=== PATIENT | female | born 1995 | race Caucasian/White ===

== ENCOUNTER 2018-11-11 17:08 | Emergency (ER) | payer MEDICAID, SELFPAY ==
[2018-11-11 17:15] VITALS: BP 130/70; PULSE 78; RESP 14; TEMP 37; O2SAT 99
--- NOTE | 2018-11-11 17:15 | W.ED.GENAD ---
Discharge Plan Disposition Patient Disposition: HOME Condition: Stable Discharge Details Chief Complaint: Abd Prob Clinical Impression: Abdominal pain, UTI (urinary tract infection) Primary Care Provider: None,None ED Provider: Jack Haynes Home Meds and New Rx's Prescriptions: New ciprofloxacin HCl 500 mg tablet 500 mg PO BID Qty: 14 RF: 0 No Action buprenorphine-naloxone [Suboxone] 8-2 mg Film 1 film BUCCAL BID RF: 0 Discharge Instructions Instructions: Urinary Tract Infection in Women (ED) Additional Instructions: you can take 1000mg tylenol and 600mg ibuprofen every 6 hours for pain as needed if symptoms continue in a week see your primary care provider return to the emergency department if you have severe worsening of pain or persistent vomit Medical Decision Making 23 yo female on suboxone for prior substance abuse, no prior surgeries or significant other medical hx, comes in with cc of abdominal pain that started this morning. Denies vomit but has had intermittent nausea. States thepain started around the bellybutton and since has moved to the right mid abdomen. On exam she is in no distress, has tenderness in the rlq and right oblique without guarding or rebound. Will obtain lab work and imaging to eval for entities such as appendicitis vs pancreatitis among other pathology blood work and cat scan do not show any acute findings. Her UA does show evidence of uti, has no burning or other symptoms, has mild suprapubic pain now. Will start abx for possible uti and advised f/u with pcp and return precautions given Differential Diagnosis cyst, appendicitis, pancreatitis Medical Records Medical records reviewed: Yes I reviewed the patient's medical records. Imaging Data Radiologic Study: Attestation: I personally reviewed and interpreted this imaging study as follows: Imaging: CT Scan Radiologist's impression: no acute findings Lab Data Lab results reviewed: Yes I reviewed the patient's lab results. HPI General Mode of arrival: ambulatory. Date/Time Provider Initiated Documentation: 11/11/18 17:11. Limitations to Documentation: no limitations. Information obtained by: patient. History of Present Illness 23 year old F presents to the emergency department with the chief complaint of abdominal pain, described as moderate, Quality is described as burning, stabbing and aching, and is localized to the abdomen. Patient started experiencing this hour(s) (8) and it has been constant. No relieving factors improve symptom(s), No exacerbating factors reported . Patient notes other (nausea). Patient did receive the following treatments prior to arrival, none Related Data Home Medications Medication Instructions Recorded Confirmed buprenorphine-naloxone [Suboxone] 1 film BUCCAL BID 11/11/18 11/11/18 ciprofloxacin HCl 500 mg PO BID #14 tab 11/11/18 Previous Rx's Medication Instructions Recorded ciprofloxacin HCl 500 mg PO BID #14 tab 11/11/18 Allergies Allergy/AdvReac Type Severity Reaction Status Date / Time No Known Allergies Allergy Unverified 11/11/18 17:18 Review of Systems Review of Systems All systems reviewed & are unremarkable except as noted in HPI and below Constitutional Denies chills and Denies fever(s) Cardiovascular Denies chest pain and Denies dyspnea Respiratory Denies cough and Denies dyspnea Gastrointestinal Denies vomiting Genitourinary Denies dysuria Psychiatric Denies depression Endocrine Denies heat intolerance [facility] Social History Smoking/Tobacco Use Status: Current every day Tobacco Type: cigarettes Smoking cigarettes per day: 10 Years smoked: 9 Tobacco: How many years used: 9 Alcohol Intake: never Drug use: Daily Substance use type: marijuana Do you feel safe at home: Yes Do you feel safe in your relationship?: Yes Exam Const General: no acute distress Orientation: alert HENMT Head: normal to inspection Ears: external ears normal General nose exam: external nose normal Mouth: moist mucous membranes Eyes General: appearance normal, both eyes and all related structures Neck Neck: normal visual inspection Resp Effort & Inspection: normal respiratory effort and able to speak in complete sentences Cardio Rate: regular rate GI Inspection: normal to inspection Palpation: soft Skin General skin exam: no rashes or lesions noted Neuro General: alert and oriented x3 Extrem General: normal to inspection Psych Mental Status: mental status grossly normal
--- NOTE | 2018-11-11 17:25 | DI.CT_ITS ---
SYMPTOM/DIAGNOSIS: RT SIDED ABD PAIN ABDOMEN AND PELVIC CT: CT scan of the abdomen and pelvis was performed following the uneventful administration of intravenous contrast material. There are no priors for comparison. The liver is normal in size. There is a tiny hypodensity in the right lobe of the liver. This is nonspecific but may represent a small cyst. Focal fatty infiltration is seen in the region of the ligamentum teres. Portal and superior mesenteric and splenic veins are patent. The gallbladder is negative. There is no biliary ductal dilatation. The pancreas, spleen and adrenal glands are unremarkable. The kidneys, ureters and bladder are unremarkable. The reproductive organs are unremarkable. The bowel shows no evidence of obstruction or inflammation. There is a normal appendix present. The abdominal aorta is of normal caliber. No significant abdominal or pelvic adenopathy, ascites or pneumoperitoneum is present. No acute osseous abnormality is identified. IMPRESSION: No evidence of an acute abdomen.
[2018-11-11 17:29] LABS: Bilirubin Negative (Negative); Blood Negative (Negative); Clarity Clear; Glucose Negative (Negative); Ketones Negative (Negative); Leukocyte Esterase Trace (Negative); Nitrite Negative (Negative); Urobilinogen 0.2 EU/dL (Up TO 0.2)
--- NOTE | 2018-11-11 17:33 | ED.GENADUL_ITS ---
Discharge Plan Disposition Patient Disposition: HOME Condition: Stable Discharge Details Chief Complaint: Abd Prob Clinical Impression: Abdominal pain, UTI (urinary tract infection) Primary Care Provider: None,None ED Provider: Jack Haynes Home Meds and New Rx's Prescriptions: New ciprofloxacin HCl 500 mg tablet 500 mg PO BID Qty: 14 RF: 0 No Action buprenorphine-naloxone [Suboxone] 8-2 mg Film 1 film BUCCAL BID RF: 0 Discharge Instructions Instructions: Urinary Tract Infection in Women (ED) Additional Instructions: you can take 1000mg tylenol and 600mg ibuprofen every 6 hours for pain as needed if symptoms continue in a week see your primary care provider return to the emergency department if you have severe worsening of pain or persistent vomit Medical Decision Making 23 yo female on suboxone for prior substance abuse, no prior surgeries or significant other medical hx, comes in with cc of abdominal pain that started this morning. Denies vomit but has had intermittent nausea. States thepain started around the bellybutton and since has moved to the right mid abdomen. On exam she is in no distress, has tenderness in the rlq and right oblique without guarding or rebound. Will obtain lab work and imaging to eval for entities such as appendicitis vs pancreatitis among other pathology blood work and cat scan do not show any acute findings. Her UA does show evidence of uti, has no burning or other symptoms, has mild suprapubic pain now. Will start abx for possible uti and advised f/u with pcp and return precautions given Differential Diagnosis cyst, appendicitis, pancreatitis Medical Records Medical records reviewed: Yes I reviewed the patient's medical records. Imaging Data Radiologic Study: Attestation: I personally reviewed and interpreted this imaging study as follows: Imaging: CT Scan Radiologist's impression: no acute findings Lab Data Lab results reviewed: Yes I reviewed the patient's lab results. HPI General Mode of arrival: ambulatory . Date/Time Provider Initiated Documentation: 11/11/18 17:11 . Limitations to Documentation: no limitations . Information obtained by: patient . History of Present Illness 23 year old F presents to the emergency department with the chief complaint of abdominal pain, described as moderate, Quality is described as burning, stabbing and aching, and is localized to the abdomen. Patient started experiencing this hour(s) (8) and it has been constant. No relieving factors improve symptom(s), No exacerbating factors reported . Patient notes other (nausea). Patient did receive the following treatments prior to arrival, none Related Data Home Medications Medication Instructions Recorded Confirmed buprenorphine-naloxone [Suboxone] 1 film BUCCAL BID 11/11/18 11/11/18 ciprofloxacin HCl 500 mg PO BID #14 tab 11/11/18 Previous Rx's Medication Instructions Recorded ciprofloxacin HCl 500 mg PO BID #14 tab 11/11/18 Allergies Allergy/AdvReac Type Severity Reaction Status Date / Time No Known Allergies Allergy Unverified 11/11/18 17:18 Review of Systems Review of Systems All systems reviewed & are unremarkable except as noted in HPI and below Constitutional Denies chills and Denies fever(s) Cardiovascular Denies chest pain and Denies dyspnea Respiratory Denies cough and Denies dyspnea Gastrointestinal Denies vomiting Genitourinary Denies dysuria Psychiatric Denies depression Endocrine Denies heat intolerance [facility] Social History Smoking/Tobacco Use Status: Current every day Tobacco Type: cigarettes Smoking cigarettes per day: 10 Years smoked: 9 Tobacco: How many years used: 9 Alcohol Intake: never Drug use: Daily Substance use type: marijuana Do you feel safe at home: Yes Do you feel safe in your relationship?: Yes Exam Const General: no acute distress Orientation: alert HENMT Head: normal to inspection Ears: external ears normal General nose exam: external nose normal Mouth: moist mucous membranes Eyes General: appearance normal, both eyes and all related structures Neck Neck: normal visual inspection Resp Effort & Inspection: normal respiratory effort and able to speak in complete se ntences Cardio Rate: regular rate GI Inspection: normal to inspection Palpation: soft Skin General skin exam: no rashes or lesions noted Neuro General: alert and oriented x3 Extrem General: normal to inspection Psych Mental Status: mental status grossly normal
[2018-11-11] MEDS: Ketorolac 15 MG/ML VIAL IVP (17:36)
[2018-11-11] MEDS: Normal Saline 1,000 ML 1000 ML IV (17:36)
[2018-11-11 17:37] LABS: Bacteria Rare HPF (Negative); C & S Indicated? Yes; Casts Negative LPF (Negative); Crystals Negative HPF (Negative); Epithelial Cells Few HPF (Negative); Mucus Negative (Negative); RBC Negative (0-2); WBC 0-2 HPF (0-5)
[2018-11-11 17:58] LABS: Abs Immature Grans 0.02 k/cumm (0.0-0.09); Absolute Basophil Count 0.05 k/cumm (0.0-0.2); Absolute Eosinophil Count 0.13 k/cumm (0.0-0.7); Absolute Lymphocyte Count 3.12 k/cumm (1.2-3.4); Absolute Monocyte Count 0.53 k/cumm (0.11-0.7); Absolute Neutrophil Count 5.94 k/cumm (1.2-6.7); Basophils % 0.5; Eosinophils % 1.3; HCT 43.8 % (36.0-46.0); HGB 14.7 g/dL (12.0-15.5); Immature Grans % 0.2; Lymphocytes % 31.9; Mean Corp. HGB Concentration 33.6 g/dL (32.0-36.0); Mean Corpuscular Hemoglobin 29.6 pg (27.0-33.0); Mean Corpuscular Volume 88.3 fL (80-95); Mean Platelet Volume 11.2 fL (8.0-11.0); Monocytes % 5.4; Neutrophils % 60.7; Platelet Count 254 x1000/uL (130-400); RBC 4.96 m/cumm (4.00-5.20); RBC Distribution Width 12.6 % (11.7-14.6); White Blood Cell Count 9.79 k/cumm (4.4-10.8)
[2018-11-11 18:04] LABS: ALT 20 U/L (12-78); AST 14 U/L (15-37); Albumin 4.3 g/dL (3.4-5.0); Alkaline Phosphatase 53 U/L (46-116); Anion Gap 9.7 mmol/L (3-11); BUN 10 mg/dL (7-18); Bilirubin, Total 0.3 mg/dL (0.2-1.0); CO2 29.3 mmol/L (21.0-32.0); CREATININE 0.82 mg/dL (0.55-1.02); Calcium 9.3 mg/dL (8.5-10.1); Chloride 103 mmol/L (98-107); Glucose 99 mg/dL (70-100); Lipase 116 U/L (73-393); Potassium 3.4 mmol/L (3.5-5.1); Sodium 142 mmol/L (136-145); Total Protein 7.6 g/dL (6.4-8.2)
[2018-11-11] MEDS: Omnipaque 350 MG/ML 100 ML BTL IJ (18:25)
--- NOTE | 2018-11-11 18:43 | DI.VRAD_ITS ---
EXAM: CT Abdomen and Pelvis With Contrast EXAM DATE/TIME: 11/11/2018 5:26 PM CLINICAL HISTORY: 23 years old, female; Pain; Abdominal pain; Localized; Right; Patient HX: Right sided abdominal pain TECHNIQUE: Imaging protocol: Axial computed tomography images of the abdomen and pelvis with intravenous contrast. Coronal and sagittal reformatted images were created and reviewed. COMPARISON: No relevant prior studies available. FINDINGS: Lower thorax: No acute findings. ABDOMEN: Liver: Normal. No mass. Gallbladder and bile ducts: Normal. No calcified stones. No ductal dilation. Pancreas: Normal. No ductal dilation. Spleen: Normal. No splenomegaly. Adrenals: Normal. No mass. Kidneys and ureters: Normal. No hydronephrosis. Stomach and bowel: Normal. No obstruction. No mucosal thickening. Appendix: No evidence of appendicitis. PELVIS: Bladder: Unremarkable as visualized. Reproductive: Unremarkable as visualized. ABDOMEN and PELVIS: Intraperitoneal space: Normal. No free air. No significant fluid collection. Bones/joints: No acute fracture. No dislocation. Soft tissues: Unremarkable. Vasculature: Normal. No abdominal aortic aneurysm. Lymph nodes: Normal. No enlarged lymph nodes. IMPRESSION: No acute findings. Dictated and Authenticated by: Ethel Silva MD. Ordering:KWASI Santiago MD
[2018-11-11 19:01] VITALS: BP 108/61; PULSE 66; RESP 16; TEMP 37.1; O2SAT 100
== END 2018-11-11 19:01 | disposition home or self-care (01) ==
PROVIDERS: Emergency Provider Emergency Medicine
DX: R10.9 Unspecified abdominal pain (principal); N39.0 Urinary tract infection, site not specified
CPT/HCPCS: 36415; 80053; 81025; 83690; 96361; 96374; 99284; 74177; 81003; 81015; 85025; 87086; J1885; J3490

== ENCOUNTER 2018-11-24 11:16 | Emergency (ER) | payer MEDICAID, SELFPAY ==
--- NOTE | 2018-11-24 11:28 | NUR.NOTE ---
pt was the passenger in a all night drive home from [place] approximately 0300 pt started vomiting bright yellow as well as liquid stools. pt complains of 9/10 pain LRQ
[2018-11-24 11:30] VITALS: BP 112/68; PULSE 64; RESP 17; TEMP 36.9; O2SAT 99
[2018-11-24] MEDS: Ondansetron O.D.T. 4 MG TABEF PO ×2 (11:39→18:29)
--- NOTE | 2018-11-24 11:41 | ED.GENADUL_ITS ---
Discharge Plan Disposition Patient Disposition: HOME Discharge Details Chief Complaint: Nausea/Vomit/Diar Clinical Impression: Colitis Primary Care Provider: Krysta Gale ED Provider: Enrique White Home Meds and New Rx's Prescriptions: New vancomycin 125 mg capsule 125 mg PO QID 10 Days Qty: 40 RF: 0 ondansetron HCl [Zofran] 4 mg tablet 4 mg PO BID-TID PRN (Reason: nausea and vomiting) Qty: 10 RF: 0 Continued buprenorphine-naloxone [Suboxone] 2-0.5 mg Film 2 film BUCCAL Q24H RF: 0 buprenorphine-naloxone [Suboxone] 8-2 mg Film 1 film BUCCAL BID RF: 0 Discharge Instructions Instructions: Ondansetron (By mouth), Vancomycin (By mouth), Clostridium Difficile Infection (ED), Colitis (ED) Additional Instructions: Please take full course of antibiotic as prescribed. Bring stool sample to lab for testing aishwarya tomorrow. Drink small amounts of fluid often in order to stay hydrated. Please contact your primary care physician to arrange follow-up. Return to the ER for any worsening or new concerning symptoms. Referrals: Krysta Gale, [employer] [Primary Care Provider] - Discharge Data Discharge Date/Time-TO BE ENTERED AT DEPARTURE: 11/24/18 18:23 Medical Decision Making 23-year-old female here with nausea, vomiting, loose stool since earlier this morning. Patient recently completed course of ciprofloxacin for UTI. Patient tender in her upper abdomen. Patient appears clinically dehydrated. IV fluid bolus given. Patient was treated with Zofran ODT. This did not resolve her nausea. She was then given Compazine 10 mg IV and Benadryl 25 mg IV to avoid potential dystonic reaction. The abdomen pelvis was interpreted by radiology: IMPRESSION: 1. Intermittent bowel wall thickening in the jejunum may represent enteritis including infectious and inflammatory etiologies. 2. The bowel wall thickening in the right colon and transverse colon and descending colon consistent with colitis. Pericholecystic fluid was noted. Ultrasound of the right upper quadrant interpreted by radiology: Hepatomegaly 16.6 cm. There is diffuse increase in hepatic parenchymal echogenicity consistent with fatty infiltration. Gallbladder wall 4.4 mm. Trace pericholecystic fluid. No gallstones. Negative sonographic Briggs sign. Clinical correlation is recommended as to whether this represents acute cholecystitis. Patient has no elevation of her LFTs. I believe her symptoms are secondary to colitis noted on CT. Patient was recently completed course of ciprofloxacin for urinary tract infection. I am concerned that her colitis is likely secondary to C. difficile. I have initiated treatment with vancomycin orally given her significant leukocytosis. She has not had a bowel movement here to check for C. difficile I would I will provide prescription for outpatient C. difficile screen testing. I will have her follow-up with her primary care physician. Patient reassessed and is now tolerating oral intake. Nausea resolved. Feeling much better. No pain. Plan for discharge. Disposition decision was made weighing the risks and benefits of hospitalization versus outpatient treatment, the risk for further decompensation, and the patient's wishes. The patient was stable and requested discharge. Prior to discharge, my usual and customary return precautions were reviewed with the patient - this included follow-up instructions and reason to return to the emergency department if condition worsens, does not improve as expected, or other new concerns arise. Patient was instructed to have close follow-up with her primary care physician. She verbalized understanding of importance of timely follow-up. I have placed her on care management follow-up list to help arrange timely follow-up this week. HPI General Mode of arrival: ambulatory . Date/Time Provider Initiated Documentation: 11/24/18 11:32 . Limitations to Documentation: no limitations . Information obtained by: patient . HPI Narrative: 23-year-old female with history of opioid use disorder, now on Suboxone, here with chief complaint of vomiting. Patient notes nausea, vomiting, loose stool since early this morning. Symptoms are severe. Persistent. No modifiers. She does have some associated upper abdominal discomfort. Related Data Home Medications Medication Instructions Recorded Confirmed buprenorphine-naloxone [Suboxone] 1 film BUCCAL BID 11/11/18 11/24/18 buprenorphine-naloxone [Suboxone] 2 film BUCCAL Q24H 11/24/18 11/24/18 ondansetron HCl [Zofran] 4 mg PO BID-TID PRN #10 tab 11/24/18 vancomycin 125 mg PO QID 10 Days #40 cap 11/24/18 Previous Rx's Medication Instructions Recorded ondansetron HCl [Zofran] 4 mg PO BID-TID PRN #10 tab 11/24/18 vancomycin 125 mg PO QID 10 Days #40 cap 11/24/18 Allergies Allergy/AdvReac Type Severity Reaction Status Date / Time No Known Allergies Allergy Unverified 11/11/18 17:18 General Stated Complaint: Nausea/Vomit/Diar LUCHO: 4 Review of Systems Review of Systems All systems reviewed & are unremarkable except as noted in HPI and below Constitutional Denies fever(s) Gastrointestinal Reports abdominal pain, Reports diarrhea and Reports vomiting [facility] Social History Smoking/Tobacco Use Status: Current every day Tobacco Type: cigarettes Tobacco: How many years used: 9 Alcohol Intake: never Drug use: Daily Substance use type: marijuana Do you feel safe at home: Yes Do you feel safe in your relationship?: Yes Exam Const General: other (vomiting) Orientation: alert and awake HENMT Head: normocephalic Mouth: moist mucous membranes Eyes Conjunctivae: normal conjunctivae Sclera: normal sclerae Neck Neck: trachea midline and supple Resp Auscultation: clear to auscultation bilaterally, no rales, no rhonchi and no wheezes Cardio Jugular venous pressure: no JVD Rate: regular rate and not tachycardic Rhythm: regular rhythm GI Palpation: soft, not firm, no guarding, no masses, not rigid and tender in the epigastrum, in the LUQ and in the RUQ Auscultation: hyperactive bowel sounds Skin General skin exam: no rashes or lesions noted Neuro General: alert, awake, oriented x3 and tone normal Extrem General: no edema Psych Appearance: grossly normal Mental Status: mental status grossly normal Course Vital Signs Temperature 36.9 C 11/24/18 11:30 Pulse 64 11/24/18 11:30 Respiratory Rate 17 11/24/18 11:30 Blood Pressure 112/68 11/24/18 11:30 Pulse Oximetry 99 11/24/18 11:30 Temperature 36.9 C 11/24/18 11:30 Temperature Source Skin 11/24/18 11:30 Pulse 64 11/24/18 11:30 Respiratory Rate 17 11/24/18 11:30 Respiratory Effort 11/24/18 11:37 Blood Pressure 112/68 11/24/18 11:30 Blood Pressure Position Sitting 11/24/18 11:30 Pulse Oximetry 99 11/24/18 11:30 Oxygen Delivery Method Room Air 11/24/18 11:30 Oxygen Flow Rate 0 11/24/18 11:30 Pain Level 9 11/24/18 11:30
[2018-11-24] MEDS: Lactated Ringers 1,000 ML 1000 ML IV ×2 (11:51→13:03)
[2018-11-24 11:59] LABS: Abs Immature Grans 0.05 k/cumm (0.0-0.09); Absolute Basophil Count 0.02 k/cumm (0.0-0.2); Absolute Eosinophil Count 0.02 k/cumm (0.0-0.7); Absolute Monocyte Count 1.05 k/cumm (0.11-0.7); Basophils % 0.1; Eosinophils % 0.1; HGB 15.4 g/dL (12.0-15.5); Immature Grans % 0.3; Lymphocytes % 2.6; Mean Corp. HGB Concentration 32.8 g/dL (32.0-36.0); Mean Corpuscular Hemoglobin 28.9 pg (27.0-33.0); Mean Corpuscular Volume 88.2 fL (80-95); Mean Platelet Volume 10.7 fL (8.0-11.0); Monocytes % 5.5; Neutrophils % 91.4; Platelet Count 251 x1000/uL (130-400); RBC 5.33 m/cumm (4.00-5.20); RBC Distribution Width 12.9 % (11.7-14.6); White Blood Cell Count 19.12 k/cumm (4.4-10.8)
[2018-11-24 12:02] LABS: Absolute Neutrophil Count 17.48 k/cumm (1.2-6.7)
[2018-11-24 12:09] LABS: ALT 26 U/L (12-78); AST 14 U/L (15-37); Albumin 4.3 g/dL (3.4-5.0); Alkaline Phosphatase 53 U/L (46-116); Anion Gap 10.7 mmol/L (3-11); BUN 12 mg/dL (7-18); Bilirubin, Total 0.5 mg/dL (0.2-1.0); CO2 28.3 mmol/L (21.0-32.0); CREATININE 0.92 mg/dL (0.55-1.02); Chloride 101 mmol/L (98-107); Glucose 184 mg/dL (70-100); Lipase 78 U/L (73-393); Potassium 4.2 mmol/L (3.5-5.1); Sodium 140 mmol/L (136-145); Total Protein 7.5 g/dL (6.4-8.2)
[2018-11-24 12:14] LABS: Bilirubin Negative (Negative); Blood Negative (Negative); Clarity Clear; Glucose Negative (Negative); Ketones Trace mg/dL (Negative); Leukocyte Esterase Negative (Negative); Nitrite Negative (Negative); Specific Gravity >= 1.030 (1.005-1.025); Urobilinogen 0.2 EU/dL (Up TO 0.2)
[2018-11-24 12:17] LABS: Calcium 9.3 mg/dL (8.5-10.1)
[2018-11-24 12:23] LABS: Bacteria Few HPF (Negative); Epithelial Cells Many HPF (Negative); RBC Negative (0-2); WBC Negative HPF (0-5)
[2018-11-24 12:24] LABS: C & S Indicated? No; Casts Negative LPF (Negative); Crystals Moderate Amorphous HPF (Negative); Mucus Moderate (Negative)
--- NOTE | 2018-11-24 12:55 | DI.CT_ITS ---
SYMPTOMS/DIAGNOSIS: ABDOMINAL PAIN, TENDERNESS TO PALPATION IN RIGHT UPPER QUADRANT CT OF THE ABDOMEN AND PELVIS: Comparison is made with November,. There is patient motion on the mid portion of the scan. There is wall thickening and distention of a loop of proximal jejunum. The remainder of the small bowel is unremarkable. The colon is decompressed. There is a small amount of fluid in the pelvis, which may be physiologic. There are small ovarian cysts. The appendix appears normal. The uterus and bladder are unremarkable. There is a trace amount of fluid around the gallbladder. There is no abnormal gallbladder distention or visible stones. No biliary dilatation is seen. There are a few tiny liver cysts. The spleen, pancreas, adrenals and kidneys are unremarkable. The aorta is normal in diameter. IMPRESSION: Wall thickening and mild dilatation of a loop of jejunum could represent infectious or inflammatory enteritis. Trace amount of fluid around the gallbladder without evidence of wall thickening, abnormal distention or biliary dilatation.
[2018-11-24] MEDS: diphenhydrAMINE 50 MG/ML VIAL 25 MG IVP (13:03)
[2018-11-24] MEDS: Prochlorperazine 10 MG/2 ML VIAL IVP (13:04)
--- NOTE | 2018-11-24 13:46 | NUR.NOTE ---
pt states that nausea has greatly decreased
[2018-11-24] MEDS: Omnipaque 350 MG/ML 100 ML BTL IJ (14:03)
--- NOTE | 2018-11-24 14:18 | DI.VRAD_ITS ---
Addendum created by Bere Hart MD on 11/24/2018 3:05:51 PM EDT THIS REPORT CONTAINS FINDINGS THAT MAY BE CRITICAL TO PATIENT CARE. The findings were verbally communicated via telephone conference with SELENE PHAM at 3:05 PM EDT on 11/24/2018. The findings were acknowledged and understood. Initial report created on 11/24/2018 2:18:21 PM EDT EXAM: CT Abdomen and Pelvis With Contrast EXAM DATE/TIME: 11/24/2018 12:57 PM CLINICAL HISTORY: 23 years old, female; Abdominal pain; Patient HX: Ttp ruq pain TECHNIQUE: Imaging protocol: Axial computed tomography images of the abdomen and pelvis with intravenous contrast. Coronal and sagittal reformatted images were created and reviewed. COMPARISON: CT ABDOMEN PELVIS W 11/11/2018 6:13 PM FINDINGS: Lungs: Bibasilar atelectasis ABDOMEN: Liver: Normal. No mass. Gallbladder and bile ducts: Pericholecystic fluid Pancreas: Normal. No ductal dilation. Spleen: Normal. No splenomegaly. Adrenals: Normal. No mass. Kidneys and ureters: Normal. No hydronephrosis. Stomach and bowel: Intermittent bowel wall thickening in the jejunum may represent enteritis including infectious and inflammatory etiologies. The bowel wall thickening in the right colon and transverse colon and descending colon consistent with colitis. Appendix: Normal appendix PELVIS: Bladder: Unremarkable as visualized. Reproductive: 2 cm cyst in the right ovary ABDOMEN and PELVIS: Intraperitoneal space: Normal. No free air. No significant fluid collection. Bones/joints: No acute fracture. No dislocation. Soft tissues: Unremarkable. Vasculature: Normal. No abdominal aortic aneurysm. Lymph nodes: Normal. No enlarged lymph nodes. Other findings: Motion artifact degrades images IMPRESSION: 1. Intermittent bowel wall thickening in the jejunum may represent enteritis including infectious and inflammatory etiologies. 2. The bowel wall thickening in the right colon and transverse colon and descending colon consistent with colitis. Dictated and Authenticated by: Bere Hart MD. Ordering:HAVEN Nunez MD
--- NOTE | 2018-11-24 15:10 | DI.US_ITS ---
SYMPTOMS/DIAGNOSIS: RIGHT UPPER QUADRANT TENDERNESS, PERICHOLECYSTIC FLUID ON CT ABDOMINAL ULTRASOUND: Comparison is made with the CT of the abdomen and pelvis performed earlier the same day. There is a trace amount of pericholecystic fluid. The gallbladder is not abnormally distended. No stones are identified. There is borderline gallbladder wall thickening, which was not apparent on CT. There is no biliary dilatation. No focal liver lesions are seen. The liver echogenicity appears normal. The kidneys, spleen, pancreas and aorta are unremarkable. IMPRESSION: Trace amount of pericholecystic fluid and mild gallbladder wall thickening. There is no evidence of acute cholecystitis or biliary dilatation.
[2018-11-24] MEDS: Vancomycin 125 MG CAP PO (15:52)
--- NOTE | 2018-11-24 17:04 | DI.VRAD_ITS ---
EXAM: US Abdomen Complete EXAM DATE/TIME: 11/24/2018 4:46 PM CLINICAL HISTORY: 23 years old, female; Signs and symptoms; Vomiting and other: Ruq tenderness, pericholecystic fluid on CT TECHNIQUE: Imaging protocol: Real-time ultrasound of the abdomen with image documentation. COMPARISON: CT ABDOMEN PELVIS W 11/24/2018 1:59 PM FINDINGS: Liver: Hepatomegaly 16.6 cm.There is a diffuse increase in hepatic parenchymal echogenicity, consistent with fatty infiltration.. Gallbladder: Gallbladder wall 4.4 mm. Trace pericholecystic fluid. No gallstones. Negative sonographic Briggs's sign. Common bile duct: Common bile duct 3.1 mm Pancreas: Visualized pancreas is unremarkable. Right kidney: Right kidney 10.5 cm . No hydronephrosis Left kidney: Left kidney 9.6 cm. No hydronephrosis. Spleen: Spleen 12.1 cm Aorta: Proximal aorta 1.9 cm. Mid aorta 1.8 cm. Distal aorta 1.7 cm Inferior vena cava: Normal IVC Portal venous: Antegrade flow in the portal vein IMPRESSION: 1. Hepatomegaly 16.6 cm.There is a diffuse increase in hepatic parenchymal echogenicity, consistent with fatty infiltration.. 2. Gallbladder wall 4.4 mm. Trace pericholecystic fluid. No gallstones. Negative sonographic Briggs's sign. Clinical correlation is recommended as to whether this represents acute cholecystitis Dictated and Authenticated by: Bere Hart MD. Ordering:HAVEN Nunez MD
[2018-11-24 18:26] VITALS: BP 112/68; PULSE 64; RESP 17; TEMP 36.9; O2SAT 99
--- NOTE | 2018-11-24 18:35 | NUR.NOTE ---
Nursing Note: Referral faxed to [facility]. Per Dr. Parker White patient has forwarded information from previous physician to this office to establish care. Needs follow up from this visit this week. Leslie Simon.
== END 2018-11-24 18:23 | disposition home or self-care (01) ==
PROVIDERS: Emergency Provider Student in an Organized Health Care Education/Training Program; PCP Nurse Practitioner Family
DX: K52.9 Noninfective gastroenteritis and colitis, unspecified (principal)
CPT/HCPCS: 36415; 80053; 81025; 83690; 96361; 96374; 99285; 74177; 76700; 81003; 81015; 85025; 99284; J0780; J1200; J3490

== ENCOUNTER 2018-11-25 11:54 | Outpatient (REF) | payer MEDICAID, SELFPAY | END 2018-11-25 12:14 | LOC: LBN 11:54 | PROVIDERS: PCP Nurse Practitioner Family; Visit Provider Student in an Organized Health Care Education/Training Program | DX: R19.7 Diarrhea, unspecified (principal) | CPT/HCPCS: 87324 ==

== ENCOUNTER 2019-01-21 15:08 | Outpatient (REF) | payer MEDICAID, SELFPAY ==
[2019-01-21 21:29] LABS: HCT 44.2 % (36.0-46.0); HGB 14.9 g/dL (12.0-15.5); Mean Corp. HGB Concentration 33.7 g/dL (32.0-36.0); Mean Corpuscular Hemoglobin 29.6 pg (27.0-33.0); Mean Corpuscular Volume 87.7 fL (80-95); Mean Platelet Volume 11.5 fL (8.0-11.0); Platelet Count 248 x1000/uL (130-400); RBC 5.04 m/cumm (4.00-5.20); RBC Distribution Width 12.7 % (11.7-14.6); White Blood Cell Count 9.17 k/cumm (4.4-10.8)
[2019-01-21 22:31] LABS: C-Reactive Protein 0.09 mg/dL (0.0-0.3)
[2019-01-21 22:47] LABS: Iron 77 ug/dL (50-175); Total Iron Binding Capacity 333 ug/dL (250-450); Transferrin Sat 23 % (15-50)
[2019-01-21 23:13] LABS: Ferritin 33 ng/mL (8-388)
[2019-01-21 23:45] LABS: ESR 4 MM/HR (0-20)
[2019-01-23 10:18] LABS: Rheumatoid Factor <8 IU/mL (<12.5)
[2019-01-23 13:08] LABS: Lyme Ab w Rflx to Lyme Confirm Negative
[2019-01-23 14:46] LABS: ANA Interpretation Negative (NEGAT)
== END 2019-01-21 15:28 ==
LOC: NCHCN 15:08
PROVIDERS: PCP Nurse Practitioner Family; Visit Provider Nurse Practitioner Family
DX: M25.50 Pain in unspecified joint (principal); R51 Headache
CPT/HCPCS: 85027; 85652; 82728; 83540; 83550; 86038; 86140; 86431; 86618

== ENCOUNTER 2019-07-18 18:50 | Outpatient (REF) | payer MEDICAID, SELFPAY ==
[2019-07-21 11:52] LABS: Varicella IgG Antibody Positive (See Note)
== END 2019-07-18 19:10 ==
LOC: NCHCN 18:50
PROVIDERS: PCP Nurse Practitioner Family; Visit Provider Nurse Practitioner Family
DX: Z00.00 Encounter for general adult medical examination without abnormal findings (principal); Z11.59 Encounter for screening for other viral diseases
CPT/HCPCS: 86787

== ENCOUNTER 2021-01-07 15:40 | Outpatient (REF) | payer MEDICAID, SELFPAY ==
--- NOTE | 2021-01-07 14:30 | PAPFT_PTH ---
PATIENT: Ina Ortiz LOC: [facility] U#:[id number] AGE/SX: 25/F ROOM: RE01/07/[address]: JANET Reyes : 1995 BED: DIS: 01/07/2021 SPEC #: [id number] RECD: 01/07/21 16:36 STATUS: REYNOLD REEvan #: [id number] NURY: 01/07/21 14:[address]: Jenny Jackson DEPT: [facility] Cytology RECD BY: Shari Rahman ENTERED: 01/07/21 16:36 SP TYPE: PAPFT OTHR DR: Krysta Gale Tissues: 1 - CX/ENDOCX FOR PAP SMEARS Procedures: PAP THIN PREP/[facility] Screening Comments: [id number]
== END 2021-01-07 15:41 | disposition home or self-care (01) ==
LOC: LBN 15:40
PROVIDERS: PCP Nurse Practitioner Family; Visit Provider Nurse Practitioner Family
DX: Z12.4 Encounter for screening for malignant neoplasm of cervix (principal)
CPT/HCPCS: 88142

== ENCOUNTER 2021-02-04 15:17 | Outpatient (REF) | payer MEDICAID, SELFPAY ==
[2021-02-09 14:25] LABS: Chlamydia Result Negative (Negative); GC Result Negative (Negative)
== END 2021-02-04 15:18 | disposition home or self-care (01) ==
LOC: LBN 15:17
PROVIDERS: PCP Nurse Practitioner Family; Visit Provider Nurse Practitioner Family
DX: R30.0 Dysuria (principal); Z11.3 Encounter for screening for infections with a predominantly sexual mode of transmission
CPT/HCPCS: 87491; 87591; 87086

== ENCOUNTER 2021-03-11 19:34 | Emergency (ER) | payer MEDICAID, SELFPAY ==
[2021-03-11 19:38] VITALS: BP 127/82; PULSE 87; RESP 18; TEMP 36.7; O2SAT 98
--- NOTE | 2021-03-11 19:45 | DI.RAD_ITS ---
Exam(s) XR TIB/FIB LT XR ANKLE LT COMPLETE EXAM: XR TIB/FIB LT CLINICAL HISTORY: twisting, pain TECHNIQUE: COMPARISON: CR,XR XR ANKLE LT COMPLETE from 03/11/2021 CR,XR XR ANKLE LT COMPLETE from 03/11/2021 FINDINGS: Two views of the leg and three views of the ankle were obtained. There is no evidence of acute fract ure or dislocation of the foot or ankle. The ankle mortise appears well maintained. IMPRESSION: RADIATION DOSE DELIVERED: Total DLP
--- NOTE | 2021-03-11 20:01 | W.ED.GENAD ---
Discharge Plan Disposition Patient Disposition: HOME Condition: Stable Discharge Details Clinical Impression: Moderate left ankle sprain Primary Care Provider: Krysta Gale ED Provider: Irma Contreras Home Meds and New Rx's Prescriptions: No Action prochlorperazine maleate 5 mg tablet 5 mg PO TID PRN (Reason: headache ) Qty: 30 RF: 1 Cryselle (28) 0.3-30 mg-mcg tablet 1 tab PO DAILY Qty: 84 RF: 3 sumatriptan succinate 50 mg tablet 50 mg PO ONCE RF: 0 magnesium 500 mg Tablet 15 mg PO DAILY RF: 0 cyanocobalamin (vitamin B-12) [Vitamin B-12] 100 mcg Tablet 100 mcg PO DAILY RF: 0 Discharge Instructions Instructions: Ankle Sprain (ED) Additional Instructions: No evidence of fracture or broken bones on the x-rays. Rest, ice, compression, elevation. Use walking boot as instructed for comfort. When sitting or laying down elevate ankle. Please take Tylenol or Ibuprofen with food every 4-6 hours as needed for pain and swelling. It may take up to 6 weeks for the sprain to completely heal. If you continue to have significant pain or unable to walk on foot or ankle after 6 weeks please follow-up with orthopedics if needed. Referrals: Austin Wong MD [ [facility] STAFF PHYSICIAN] - Medical Decision Making 25-year-old female presents the ER with chief complaint of left ankle pain status post inversion type injury. With lateral malleolus swelling and tenderness. No obvious deformity. X-rays ordered, Tylenol, ice pack X-rays of left ankle and left tib-fib which were ordered and triaged by staff developer show nothing acute. Patient placed in a short ankle walking boot and instructed on home care. This text was generated using [employer] dictation system, please disregard any oddities of phrase or misspellings. HPI General Mode of arrival: wheelchair. Date/Time Provider Initiated Documentation: 03/11/21 19:41. Limitations to Documentation: no limitations. Information obtained by: patient and RN notes reviewed. HPI Narrative: 25-year-old female presents to the ER with complaint of left ankle pain status post inversion type injury just prior to arrival. Patient states that she was stepping out of a camper and stepped into a uneven area of the grass and fell. She was unable to get up after the fall. She has some lateral malleolus tenderness and swelling. No obvious deformity. Knee is within normal limits no tenderness deformity or swelling. Distal circulation sensation movement intact. Did not take any medications prior to arrival. Denies any chance of is on control tablets, last known normal menstrual period is February 17. Related Data Home Medications Medication Instructions Recorded Confirmed sumatriptan succinate 50 mg tablet 50 mg PO ONCE 06/10/19 03/11/21 prochlorperazine maleate 5 mg 5 mg PO TID PRN #30 tab 06/30/19 03/11/21 tablet norgestrel 0.3 mg-ethinyl 1 tab PO DAILY #84 tab 01/07/21 03/11/21 estradiol 30 mcg tablet cyanocobalamin (vitamin B-12) 100 mcg PO DAILY 03/11/21 03/11/21 [Vitamin B-12] magnesium 15 mg PO DAILY 03/11/21 03/11/21 Previous Rx's Medication Instructions Recorded prochlorperazine maleate 5 mg 5 mg PO TID PRN #30 tab 06/30/19 tablet norgestrel 0.3 mg-ethinyl 1 tab PO DAILY #84 tab 01/07/21 estradiol 30 mcg tablet Allergies Allergy/AdvReac Type Severity Reaction Status Date / Time cat dander Allergy Unverified 02/04/21 14:08 General Stated Complaint: Orthopedic LUCHO: 4 Review of Systems All systems reviewed & are unremarkable except as noted in HPI and below Musculoskeletal Musculoskeletal: Reports as per HPI, Denies deformity, Reports arthralgias (Left ankle), Reports joint swelling and Reports radiating pain into limb [facility] Medical History Clostridium difficile colitis Depression Headache Migraine Migraine headache without aura Multiple joint pain Opioid abuse, in remission Ovarian cyst Seasonal allergies Syncope Family History Mother Diabetes Thyroid disorder Maternal Grandmother Ovarian cancer Maternal Grandfather Stroke Heart disease Social History Smoking/Tobacco Use Status: Former Tobacco Use Tobacco: How many years used: 9 Smoking risk assessment performed?: Yes Alcohol Intake: never Drug use: Daily Substance use type: marijuana Household members: significant other Number of Children: 0 Seatbelt use: always Do you feel safe at home: Yes Do you feel safe in your relationship?: Yes Exam Extrem Left lower extremity: ankle Details: tenderness Location: of the lateral malleolus and of the anterior talofibular ligament and swelling (Lateral malleolus) Details: laterally Course Vital Signs Vital signs: Vital Signs Temperature 36.7 C 03/11/21 19:38 Pulse 87 03/11/21 19:38 Respiratory Rate 18 03/11/21 19:38 Blood Pressure 127/82 03/11/21 19:38 Pulse Oximetry 98 03/11/21 19:38 Temperature 36.7 C 03/11/21 19:38 Temperature Source Skin 03/11/21 19:38 Pulse 87 03/11/21 19:38 Respiratory Rate 18 03/11/21 19:38 Respiratory Effort Non-Labored 03/11/21 19:42 Blood Pressure 127/82 03/11/21 19:38 Blood Pressure Position Sitting 03/11/21 19:38 Pulse Oximetry 98 03/11/21 19:38 Oxygen Delivery Method Room Air 03/11/21 19:38 Oxygen Flow Rate 0 03/11/21 19:38 Pain Level 5 03/11/21 19:38
[2021-03-11] MEDS: Acetaminophen 325 MG TAB 650 MG PO (20:18)
--- NOTE | 2021-03-11 20:34 | DI.VRAD_ITS ---
PROCEDURE INFORMATION: Exam: XR Left Ankle Exam date and time: 03/11/2021 7:49 PM Age: 25 years old Clinical indication: Other: Twisting/pain TECHNIQUE: Imaging protocol: XR Left ankle. Views: 3 or more views. COMPARISON: No relevant prior studies available. FINDINGS: Bones/joints: Normal. Soft tissues: Normal. IMPRESSION: No acute findings. Dictated and Authenticated by: Desmond Ramirez MD. Ordering:DAXA Solis MD
--- NOTE | 2021-03-11 20:39 | DI.VRAD_ITS ---
PROCEDURE INFORMATION: Exam: XR Left Tibia and Fibula Exam date and time: 03/11/2021 7:49 PM Age: 25 years old Clinical indication: Other: Twisting/pain TECHNIQUE: Imaging protocol: XR Left tibia and fibula. Views: 2 views. COMPARISON: No relevant prior studies available. FINDINGS: Bones/joints: Normal. Soft tissues: Normal. IMPRESSION: No acute findings. Dictated and Authenticated by: Desmond Ramirez MD. Ordering:DAXA Solis MD
== END 2021-03-11 21:10 | disposition home or self-care (01) ==
PROVIDERS: Emergency Provider Registered Nurse Emergency; PCP Nurse Practitioner Family
DX: S93.492A Sprain of other ligament of left ankle, initial encounter (principal); X50.1XXA Overexertion from prolonged static or awkward postures, initial encounter; W18.39XA Other fall on same level, initial encounter
CPT/HCPCS: 29515; 99283; 73590; 73610